=== PATIENT | male | born 1980 | race Caucasian/White ===

== ENCOUNTER 2020-02-07 15:24 | Emergency (ER) | payer BC ==
[~2020-02-07] VITALS: Ht 170.2 cm; Wt 65.9 kg
[2020-02-07 15:32] VITALS: Ht 170.2 cm; Wt 65.9 kg
[2020-02-07] MEDS ORDERED: KEFLEX500 MG PO (18:16)
[2020-02-07] MEDS ORDERED: NAPROSYN500 MG PO (18:16)
[2020-02-07 19:30] VITALS: BP 117/70
== END 2020-02-07 19:30 | disposition home or self-care (01) ==
LOC: D.ER 15:24
DX: S69.91XA Unspecified injury of right wrist, hand and finger(s), initial encounter (principal); S61.210A Laceration without foreign body of right index finger without damage to nail, initial encounter; S61.212A Laceration without foreign body of right middle finger without damage to nail, initial encounter; W23.0XXA Caught, crushed, jammed, or pinched between moving objects, initial encounter; Y93.9 Activity, unspecified; Y92.9 Unspecified place or not applicable